=== PATIENT | female | born 1975 | race Two or more races ===

== ENCOUNTER 2024-08-07 08:17 | Outpatient (RCR) | payer MEDICAID, SELFPAY ==
--- NOTE | 2024-08-07 08:30 | XR_ITS ---
Examination: Nuclear medicine gastric emptying study Exam date and time: August 07, 2024 0842 hours INDICATIONS: Bloating and pain after eating with diarrhea months TECHNIQUE AND FINDINGS: Oral administration 2.1 mCi technetium 99m sulfur colloid Gastric emptying at 120 minutes, 21.5% retention IMPRESSION: Normal gastric emptying
== END 2024-08-12 23:59 | disposition home or self-care (01) ==
LOC: SNUC 08:17
PROVIDERS: PCP Internal Medicine; Referring Provider Specialist; Visit Provider Specialist
DX: Q40.1 Congenital hiatus hernia (principal)
CPT/HCPCS: 78264; A9541